=== PATIENT | female | born 1990 | race American Indian/Alaskan Native ===

== ENCOUNTER 2022-03-15 14:54 | Inpatient (IN) | payer OTHER ==
[2022-03-15] MEDS ORDERED: LACTATED RINGERS 500 ML IV ONE (15:59)
[2022-03-15 16:21] LABS: Hemoglobin 8.8 gm/dl (10.1-14.3); Mean Corpuscular HGB Conc 34 % (30-34); Mean Corpuscular Volume 77 fl (79-97); Platelet Count 390 K/mm3 (140-440); Red Blood Count 3.37 M/mm3 (3.65-5.03); Red Cell Distribution Width 15.8 % (13.2-15.2)
[2022-03-15 16:33] LABS: Bacteria,Urine 2+ /HPF (Negative); Mucus,Urine FEW /HPF
[2022-03-15 16:46] LABS: Bilirubin,Urine Negative (Negative); Blood,Urine Trace (Negative); Color,Urine Straw (Yellow); Urobilinogen,Urine < 2.0 mg/dL (<2.0)
[2022-03-15 16:47] LABS: Alanine Aminotransferase 27 units/L (7-56); Uric Acid 2.6 mg/dL (3.5-7.6)
[2022-03-15] MEDS ORDERED: ACETAMINOPHEN 500 MG TAB PO NR (17:42)
--- NOTE | 2022-03-15 18:16 | History and Physical Report ---
History of Present Illness Date of examination: 03/15/22 Chief complaint: MULLEN, dizzy, nausea and vomiting History of present illness: EDC Confirmation: 06/20/2022 Past History : 1 Term Births: 0 Premature Births: 0 Living Children: 0 Para: 0 Mult. Births: 0 Prev : 0 Aborta: 0 Elect. Ab: 0 Spont. Ab: 0 Ectopics: 0 Past Medical History: Reviewed and updated today: Anxiety Asthma Depression Past Surgical History: Reviewed and updated today: Negative Past Surgical History Family History Summary: First Degree Blood Relative - Has No Known Family History - Entered On: 01/02/2022 Social History: Patient is single Smoking History: Patient has never smoked. Risk Factors: Smoked Tobacco Use: Never smoker Smokeless Tobacco Use: Never Counseled to Quit/Cut Down: yes Passive Smoke Exposure: no HIV High Risk Behavior: no Caffeine Use: 0 drinks per day Exercise: yes Times/wk: 3 Type of Exercise: run Exercise Counseling: yes Seatbelt Use: preg-[facility] % Sun Exposure: frequently Family History Risk Factors: Family History of CA in 1 Female Relative Age < 65: no Family History of CA in 1 Male Relative Age < 55: no No Dietary Counseling Reason: pn yes PAP Smear History: Date of Last PAP Smear: 12/30/2020 Results: Normal Alcohol Use: no Drug Use: no Past Medical History Anesthesia Complications: negative Anemia: negative Autoimmune Disorder: negative Bleeding Disorder: negative Blood Transfusions: negative Breast Disease: negative Diabetes: negative Heart Disease: negative Hypertension: negative Hepatitis/Liver Disease: negative Kidney Disease/UTI: negative Neurologic/Epilepsy/Migraines: negative Phlebitis/Varicosities: negative Psychiatric: positive Pulmonary Disease/Asthma: positive Thyroid Disease: negative Hospitalizations: negative 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 Infection History Hx of STD: none HIV Risk Eval: no Hepatitis B Risk Eval: low risk Personal hx. of genital herpes: no Partner hx. of genital herpes: no Rash, Viral, or Febrile illness since last LMP? no Varicella/Chicken Pox Status: Previous Disease TB Risk: no Genetic History Congenital Heart Defect: Mom: no Dad: no Joann Disease: Mom: no Dad: no Thalassemia Mom: no Dad: no Neural Tube Defect Mom: no Dad: no Down's Syndrome Mom: no Dad: no Jermaine-Sachs Mom: no Dad: no Sickle Cell Disease/Trait Mom: no Dad: no Hemophilia Mom: no Dad: no Muscular Dystrophy Mom: no Dad: no Cystic Fibrosis Mom: no Dad: no Bozena Chorea Mom: no Dad: no Mental Retardation Mom: no Dad: no Fragile X Mom: no Dad: no Other Genetic/Chromosomal Disorder Mom: no Dad: no Child w/other defect Mom: no Dad: no Enviromental Exposures Enviromental Exposures Reviewed Xray Exposure: no Medication, drug, or alcohol use since LMP: no Chemical/Other Exposure: no Exposure to Cat Liter: no Hx of Parvovirus (Fifth Disease): no Occupational Exposure to Children: none Active Medications (reviewed today): albuterol inhaler () Gummies(zinc chelate) unspecified unspecified ([id number] [id number]) Current Allergies (reviewed today): No known allergies Past History Past Medical History: other (see HPI) Past Surgical History: other (see HPI) PUBLIC ACCOUNTANT History: other (see HPI) Family/Genetic History: other (see HPI) Social history: no significant social history - Obstetrical History Expected Date of Delivery: 06/20/22 Actual Gestation: 26 Week(s) 1 Day(s) : 1 Para: 0 Hx # Term Pregnancies: 0 Number of Pregnancies: 0 Spontaneous Abortions: 0 Induced : 0 Number of Living Children: 0 Medications and Allergies Allergies Allergy/AdvReac Type Severity Reaction Status Date / Time No Known Allergies Allergy Verified 03/15/22 15:51 Home Medications Medication Instructions Recorded Confirmed Last Taken Type Cyclobenzaprine [Flexeril] 10 mg PO TID PRN #15 tablet 06/12/16 03/15/22 Unknown Rx Ibuprofen [Motrin 800 MG tab] 800 mg PO Q8HR PRN #30 tablet 06/12/16 03/15/22 Unknown Rx Active Meds: Active Medications Acetaminophen (Acetaminophen 500 Mg Tab) 1,000 mg PO ONCE NR Stop: 03/15/22 20:00 Last Admin: 03/15/22 17:48 Dose: 1,000 mg Acetaminophen (Acetaminophen 325 Mg Tab) 650 mg PO Q4H PRN PRN Reason: Pain MILD(1-3)/Fever >100.5/MULLEN Al Hydrox/Mg Hydrox/Simethicone (Alum-Mag Hydroxide-Simethicone [id number]/5ml Oral Liqd 30 Ml) 30 ml PO Q6H PRN PRN Reason: Indigestion Diphenhydramine HCl (Diphenhydramine 25 Mg Cap) 25 mg PO Q6H PRN PRN Reason: Itching Docusate Sodium (Docusate Sodium 100 Mg Cap) 100 mg PO Q12H PRN PRN Reason: Constipation Lactated Ringer's (Lactated Ringers) 1,000 mls @ 125 mls/hr IV DIRECT KENNETH Magnesium Hydroxide (Magnesium Hydroxide (Mom) Oral Liqd Udc) 30 ml PO QHS PRN PRN Reason: Laxative Effect Multivitamins/Iron/Calcium ( [id number] Fumarate-Folic Acid Vit Tab) 1 each PO QDAY KENNETH Ondansetron HCl (Ondansetron 4 Mg/2 Ml Inj) 4 mg IV Q6H PRN PRN Reason: Nausea And Vomiting Sodium Chloride (Sodium Chloride Nasal [place] 44ml) 2 spray NS Q4H PRN PRN Reason: Congestion Review of Systems All systems: negative - Vital Signs Vital signs: Vital Signs Pulse BP Pulse Ox 101 H 142/80 98 03/15/22 15:54 03/15/22 15:54 03/15/22 15:54 Temp Pulse Resp BP Pulse Ox 97.9 F 88 16 138/73 98 03/15/22 15:55 03/15/22 18:04 03/15/22 17:48 03/15/22 18:04 03/15/22 18:04 - Physical Exam Breasts: Positive: normal Cardiovascular: Regular rate Lungs: Positive: Normal air movement Abdomen: Positive: normal appearance, soft Genitourinary (Female): Positive: normal external genitalia Extremities: Positive: normal Deep Tendon Reflex Grade: Normal +2 - Obstetrical FHR: category 1 Uterine Contraction Monitor Mode: External Uterine Contraction Pattern: Absent Uterine Tone Measurement Phase: Resting Results Result Diagrams: 03/15/22 16:11 03/15/22 16:11 Abnormal lab results 03/15/22 03/15/22 03/15/22 Range/Units 16:11 16:11 16:11 RBC 3.37 L (3.65-5.03) M/mm3 Hgb 8.8 L (10.1-14.3) gm/dl Hct 26.0 L (30.3-42.9) % MCV 77 L (79-97) fl MCH 26 L (28-32) pg RDW 15.8 H (13.2-15.2) % Creatinine 0.5 L (0.6-1.2) mg/dL Uric Acid 2.6 L (3.5-7.6) mg/dL Lactate Dehydrogenase 181 H (91-180) units/L Urine WBC (Auto) 18.0 H (0.0-6.0) /HPF U Epithel Cells (Auto) 15.0 H (0-13.0) /HPF All other labs normal. Assessment and Plan 31y/o @ 26+1weeks admitted for observation and 24hr urine. She presented with MULLEN, dizziness, N/V. Upon admission, b/p 142/80. no hx of htn. pre-e labs collected and reviewed. 1+ proteinuria noted. Dr. Khan consulted - plan to keep for 24h urine collection and continued observation. Covid test also ordered, results not expected until tomorrow. no fever noted. 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
[2022-03-15] MEDS ORDERED: SODIUM CHLORIDE NASAL SPRAY 44ML NS PRN (19:00)
[2022-03-15] MEDS ORDERED: diphenhydrAMINE 25 MG CAP PO PRN (19:00)
[2022-03-15] MEDS ORDERED: ALUM-MAG HYDROXIDE-SIMETHICONE 200-200-20MG/5ML ORAL LIQD 30 ML PO PRN (19:00)
[2022-03-15] MEDS ORDERED: ONDANSETRON 4 MG/2 ML INJ IV PRN (19:00)
[2022-03-15] MEDS ORDERED: DOCUSATE SODIUM 100 MG CAP PO PRN (19:00)
[2022-03-15] MEDS: LACTATED RINGERS 1,000 ML IV SCH (20:56)
[2022-03-15] MEDS ORDERED: ACETAMINOPHEN 325 MG TAB PO PRN (21:30)
[2022-03-15] MEDS ORDERED: MAGNESIUM HYDROXIDE (MOM) ORAL LIQD UDC PO PRN (22:00)
--- NOTE | 2022-03-16 07:41 | Progress Note ---
Assessment and Plan A: IUP @ 26,2 wks, elevated BP X1, MULLEN, 24 hr urine in progress, anemia - Patient Problems (1) 26 weeks gestation of Current Visit: Yes Status: Acute Plan to address problem: Continue with NST's 4 hrs. Monitor for s/sx of labor. (2) Anemia complicating Current Visit: Yes Status: Acute Qualifiers: Trimester: second trimester Qualified Code(s): O99.012 - Anemia complicating , second trimester Plan to address problem: Iron supplementation ordered. (3) Elevated blood pressure complicating in second trimester, antepartum Current Visit: Yes Status: Acute Plan to address problem: Continue to monitor blood pressures. Monitor for s/sx of Pre-eclampsia. 24 hr urine in progress. - Due to be completed at 1930 on 03/16. Subjective - Subjective Date of service: 03/16/22 Principal diagnosis: IUP @ 26,2 wks, elevated BP X1, MULLEN, 24 hr urine in progress Interval history: Pt denies MULLEN, blurred vision, spots before her eyes, chest pain, feeling dizzy, lightheaded, shortness of breath, upper abdominal pain, vaginal bleeding, ctxs, and LOF. We discussed need for iron supplementation and pt verbalized understanding. Patient reports: movement normal, no new complaints, no loss of fluid, no vaginal bleeding, no contractions Objective - Vital Signs Vital Signs: Vital Signs - 12hr 03/15/22 03/15/22 03/15/22 19:44 19:48 19:54 Temperature Pulse Rate 91 H 95 H 93 H Respiratory Rate Blood Pressure O2 Sat by Pulse 100 99 99 Oximetry 03/15/22 03/15/22 03/15/22 19:59 20:04 20:09 Temperature Pulse Rate 91 H 90 86 Respiratory Rate Blood Pressure O2 Sat by Pulse 99 98 99 Oximetry 03/15/22 03/15/22 03/15/22 20:14 20:19 20:24 Temperature Pulse Rate 89 89 93 H Respiratory Rate Blood Pressure O2 Sat by Pulse 99 99 100 Oximetry 03/15/22 03/15/22 03/15/22 20:29 20:34 20:39 Temperature Pulse Rate 87 81 98 H Respiratory Rate Blood Pressure 129/67 O2 Sat by Pulse 98 99 99 Oximetry 03/15/22 03/15/22 03/15/22 20:43 20:48 20:54 Temperature Pulse Rate 90 87 83 Respiratory Rate Blood Pressure O2 Sat by Pulse 99 98 99 Oximetry 03/15/22 03/15/22 03/15/22 20:59 21:04 21:09 Temperature Pulse Rate 96 H 85 89 Respiratory Rate Blood Pressure O2 Sat by Pulse 99 99 99 Oximetry 03/15/22 03/15/22 03/15/22 21:13 21:19 21:24 Temperature Pulse Rate 92 H 85 86 Respiratory Rate Blood Pressure O2 Sat by Pulse 98 98 100 Oximetry 03/15/22 03/15/22 03/15/22 21:29 21:34 21:38 Temperature Pulse Rate 98 H 91 H 96 H Respiratory Rate Blood Pressure O2 Sat by Pulse 99 99 98 Oximetry 03/15/22 03/15/22 03/15/22 21:44 21:48 21:53 Temperature Pulse Rate 99 H 94 H 94 H Respiratory Rate Blood Pressure O2 Sat by Pulse 95 99 100 Oximetry 03/15/22 03/15/22 03/15/22 21:59 22:03 22:09 Temperature Pulse Rate 96 H 96 H 89 Respiratory Rate Blood Pressure O2 Sat by Pulse 99 98 97 Oximetry 03/15/22 03/15/22 03/15/22 22:13 22:19 22:24 Temperature Pulse Rate 92 H 98 H 104 H Respiratory Rate Blood Pressure O2 Sat by Pulse 97 98 99 Oximetry 03/15/22 03/15/22 03/15/22 22:29 22:34 22:35 Temperature Pulse Rate 99 H 90 90 Respiratory Rate Blood Pressure 137/73 O2 Sat by Pulse 98 99 94 Oximetry 03/15/22 03/15/22 03/15/22 22:38 22:43 22:49 Temperature Pulse Rate 96 H 99 H 88 Respiratory Rate Blood Pressure O2 Sat by Pulse 99 99 99 Oximetry 03/15/22 03/15/22 03/15/22 23:09 23:12 23:14 Temperature 98 F Pulse Rate 98 H 90 Respiratory 18 Rate Blood Pressure O2 Sat by Pulse 99 98 99 Oximetry 03/15/22 03/15/22 03/15/22 23:19 23:24 23:28 Temperature Pulse Rate 94 H 95 H 90 Respiratory Rate Blood Pressure O2 Sat by Pulse 98 98 98 Oximetry 03/15/22 03/15/22 03/15/22 23:33 23:35 23:39 Temperature Pulse Rate 106 H 93 H 92 H Respiratory Rate Blood Pressure 111/64 O2 Sat by Pulse 99 99 Oximetry 03/15/22 03/15/22 03/15/22 23:44 23:48 23:53 Temperature Pulse Rate 86 90 84 Respiratory Rate Blood Pressure O2 Sat by Pulse 99 98 99 Oximetry 03/15/22 03/16/22 03/16/22 23:58 00:04 00:08 Temperature Pulse Rate 101 H 87 91 H Respiratory Rate Blood Pressure O2 Sat by Pulse 99 99 98 Oximetry 03/16/22 03/16/22 03/16/22 00:14 00:18 00:24 Temperature Pulse Rate 89 84 85 Respiratory Rate Blood Pressure O2 Sat by Pulse 98 99 98 Oximetry 03/16/22 03/16/22 03/16/22 00:29 00:33 00:35 Temperature Pulse Rate 82 80 90 Respiratory Rate Blood Pressure 109/51 O2 Sat by Pulse 98 100 Oximetry 03/16/22 03/16/22 03/16/22 00:38 00:43 00:44 Temperature Pulse Rate 90 85 40 L Respiratory Rate Blood Pressure O2 Sat by Pulse 99 100 92 Oximetry 03/16/22 03/16/22 03/16/22 00:48 00:53 00:58 Temperature Pulse Rate 90 91 H 96 H Respiratory Rate Blood Pressure O2 Sat by Pulse 99 100 99 Oximetry 03/16/22 03/16/22 03/16/22 01:03 01:08 01:13 Temperature Pulse Rate 90 81 89 Respiratory Rate Blood Pressure O2 Sat by Pulse 98 98 97 Oximetry 03/16/22 03/16/22 03/16/22 01:18 01:23 01:28 Temperature Pulse Rate 87 90 89 Respiratory Rate Blood Pressure O2 Sat by Pulse 96 97 98 Oximetry 03/16/22 03/16/22 03/16/22 01:33 01:34 01:38 Temperature Pulse Rate 93 H 91 H 92 H Respiratory Rate Blood Pressure 103/50 O2 Sat by Pulse 98 96 Oximetry 03/16/22 03/16/22 03/16/22 01:43 01:48 01:53 Temperature Pulse Rate 93 H 95 H 92 H Respiratory Rate Blood Pressure O2 Sat by Pulse 98 98 98 Oximetry 03/16/22 03/16/22 03/16/22 01:55 01:58 02:03 Temperature Pulse Rate 104 H 79 80 Respiratory Rate Blood Pressure O2 Sat by Pulse 94 96 98 Oximetry 03/16/22 03/16/22 03/16/22 02:08 02:12 02:13 Temperature Pulse Rate 80 89 89 Respiratory Rate Blood Pressure O2 Sat by Pulse 99 93 97 Oximetry 03/16/22 03/16/22 03/16/22 02:18 02:23 02:28 Temperature Pulse Rate 88 87 82 Respiratory Rate Blood Pressure O2 Sat by Pulse 97 99 99 Oximetry 03/16/22 03/16/22 03/16/22 02:33 02:34 02:35 Temperature Pulse Rate 85 68 81 Respiratory Rate Blood Pressure 115/54 O2 Sat by Pulse 98 91 Oximetry 03/16/22 03/16/22 03/16/22 02:38 02:43 02:48 Temperature Pulse Rate 85 87 87 Respiratory Rate Blood Pressure O2 Sat by Pulse 97 99 99 Oximetry 03/16/22 03/16/22 03/16/22 02:53 02:58 03:03 Temperature Pulse Rate 89 90 90 Respiratory Rate Blood Pressure O2 Sat by Pulse 98 97 98 Oximetry 03/16/22 03/16/22 03/16/22 03:08 03:13 03:18 Temperature Pulse Rate 84 89 89 Respiratory Rate Blood Pressure O2 Sat by Pulse 97 99 99 Oximetry 03/16/22 03/16/22 03/16/22 03:23 03:28 03:33 Temperature Pulse Rate 78 109 H 74 Respiratory Rate Blood Pressure O2 Sat by Pulse 98 98 97 Oximetry 03/16/22 03/16/22 03/16/22 03:35 03:38 03:43 Temperature Pulse Rate 90 79 78 Respiratory Rate Blood Pressure 111/56 O2 Sat by Pulse 99 99 Oximetry 03/16/22 03/16/22 03/16/22 03:48 03:53 03:54 Temperature Pulse Rate 82 88 83 Respiratory Rate Blood Pressure O2 Sat by Pulse 98 98 93 Oximetry 03/16/22 03/16/22 03/16/22 03:58 04:06 04:11 Temperature Pulse Rate 101 H 102 H 85 Respiratory Rate Blood Pressure O2 Sat by Pulse 95 97 99 Oximetry 03/16/22 03/16/22 03/16/22 04:16 04:21 04:26 Temperature Pulse Rate 83 80 76 Respiratory Rate Blood Pressure O2 Sat by Pulse 99 99 99 Oximetry 03/16/22 03/16/22 03/16/22 04:31 04:34 04:36 Temperature Pulse Rate 77 81 86 Respiratory Rate Blood Pressure 130/73 O2 Sat by Pulse 99 100 Oximetry 03/16/22 03/16/22 03/16/22 04:41 04:46 04:51 Temperature 98.3 F Pulse Rate 80 80 79 Respiratory 18 Rate Blood Pressure O2 Sat by Pulse 97 98 98 Oximetry 03/16/22 03/16/22 03/16/22 04:56 05:01 05:06 Temperature Pulse Rate 83 81 84 Respiratory Rate Blood Pressure O2 Sat by Pulse 97 98 99 Oximetry 03/16/22 03/16/22 03/16/22 05:11 05:16 05:21 Temperature Pulse Rate 85 85 86 Respiratory Rate Blood Pressure O2 Sat by Pulse 99 98 98 Oximetry 03/16/22 03/16/22 03/16/22 05:26 05:31 05:34 Temperature Pulse Rate 91 H 89 81 Respiratory Rate Blood Pressure 122/58 O2 Sat by Pulse 98 98 Oximetry 03/16/22 03/16/22 03/16/22 05:36 05:41 05:46 Temperature Pulse Rate 79 82 85 Respiratory Rate Blood Pressure O2 Sat by Pulse 98 97 96 Oximetry 03/16/22 03/16/22 03/16/22 05:48 05:51 05:56 Temperature Pulse Rate 87 82 86 Respiratory Rate Blood Pressure O2 Sat by Pulse 93 98 99 Oximetry 03/16/22 03/16/22 03/16/22 06:02 06:07 06:12 Temperature Pulse Rate 88 85 80 Respiratory Rate Blood Pressure O2 Sat by Pulse 99 98 98 Oximetry 03/16/22 03/16/22 03/16/22 06:17 06:22 06:27 Temperature Pulse Rate 86 84 89 Respiratory Rate Blood Pressure O2 Sat by Pulse 98 99 98 Oximetry 03/16/22 03/16/22 03/16/22 06:32 06:34 06:37 Temperature Pulse Rate 87 83 86 Respiratory Rate Blood Pressure 111/63 O2 Sat by Pulse 99 98 Oximetry 03/16/22 03/16/22 03/16/22 06:42 06:47 06:52 Temperature Pulse Rate 89 89 81 Respiratory Rate Blood Pressure O2 Sat by Pulse 98 96 97 Oximetry 03/16/22 03/16/22 03/16/22 06:57 07:02 07:07 Temperature Pulse Rate 93 H 89 85 Respiratory Rate Blood Pressure O2 Sat by Pulse 97 98 99 Oximetry 03/16/22 03/16/22 03/16/22 07:12 07:17 07:22 Temperature Pulse Rate 88 89 89 Respiratory Rate Blood Pressure O2 Sat by Pulse 98 98 99 Oximetry 03/16/22 03/16/22 03/16/22 07:27 07:32 07:35 Temperature Pulse Rate 89 79 93 H Respiratory Rate Blood Pressure 100/62 O2 Sat by Pulse 98 98 Oximetry 03/16/22 07:37 Temperature Pulse Rate 85 Respiratory Rate Blood Pressure O2 Sat by Pulse 97 Oximetry - Exam Cardiovascular: Regular rate Lungs: Normal air movement Abdomen: Present: normal appearance, soft FHR: other (NSTs appropriate for gestational age. ) Uterine Contraction Pattern: Absent Extremities: normal Deep Tendon Reflex Grade: Normal +2 - Labs Labs: Abnormal Labs 03/15/22 03/15/22 03/15/22 16:11 16:11 16:11 RBC 3.37 L Hgb 8.8 L Hct 26.0 L MCV 77 L MCH 26 L RDW 15.8 H Creatinine 0.5 L Uric Acid 2.6 L Lactate Dehydrogenase 181 H Urine WBC (Auto) 18.0 H U Epithel Cells (Auto) 15.0 H Laboratory Results - last 24 hr 03/15/22 03/15/22 03/15/22 16:11 16:11 16:11 WBC 9.2 RBC 3.37 L Hgb 8.8 L Hct 26.0 L MCV 77 L MCH 26 L MCHC 34 RDW 15.8 H Plt Count 390 Creatinine 0.5 L Estimated GFR > 60 Uric Acid 2.6 L AST 18 ALT 27 Lactate Dehydrogenase 181 H Urine Color Straw Urine Turbidity Y Urine pH 6.0 Ur Specific [place] 1.015 Urine Protein 30 mg/dl Urine Glucose (UA) Negative Urine Ketones Negative Urine Blood Trace Urine Nitrite Negative Ur Reducing Substances Not Reportable Urine Bilirubin Negative Urine Ictotest Not Reportable Urine Urobilinogen < 2.0 Ur Leukocyte Esterase Small Urine WBC (Auto) 18.0 H Urine RBC (Auto) 8.0 U Epithel Cells (Auto) 15.0 H Urine Bacteria (Auto) 2+ Urine Mucus Few Urine Yeast (Budding) 1+
[2022-03-16] MEDS: PRENATAL VIT27-FE FUMARATE-FOLIC ACID VIT TAB PO SCH (10:38)
[2022-03-16] MEDS: DOCUSATE SODIUM 100 MG CAP PO SCH ×2 (10:38→21:34)
[2022-03-16] MEDS: FERROUS SULFATE 325 MG TAB PO SCH (21:34)
[2022-03-16] MEDS: LACTATED RINGERS 1,000 ML IV SCH (22:06)
--- NOTE | 2022-03-17 08:18 | Progress Note ---
Assessment and Plan patient resting, no complaints. MULLEN, dizziness and n/v resolved. Waiting on results from 24hr urine, plan to d/c patient home with 1 wk follow up. 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 Current Visit: Yes Status: Acute (2) 26 weeks gestation of Current Visit: Yes Status: Acute (3) Headache Current Visit: Yes Status: Resolved Qualifiers: Headache type: tension-type Headache chronicity pattern: acute headache Intractability: not intractable Qualified Code(s): G44.209 - Tension-type headache, unspecified, not intractable (4) Elevated blood pressure complicating in second trimester, antepartum Current Visit: Yes Status: Acute (5) Nausea & vomiting Current Visit: Yes Status: Resolved (6) Anxiety Current Visit: Yes Status: Acute (7) Asthma Current Visit: Yes Status: Acute Subjective - Subjective Date of service: 03/17/22 Principal diagnosis: IUP @ 26+3 wks, elevated BP X1, MULLEN, 24 hr urine in progress Interval history: EDC Confirmation: 06/20/2022 Past History : 1 Term Births: 0 Premature Births: 0 Living Children: 0 Para: 0 Mult. Births: 0 Prev : 0 Aborta: 0 Elect. Ab: 0 Spont. Ab: 0 Ectopics: 0 Past Medical History: Reviewed and updated today: Anxiety Asthma Depression Past Surgical History: Reviewed and updated today: Negative Past Surgical History Family History Summary: First Degree Blood Relative - Has No Known Family History - Entered On: 01/02/2022 Social History: Patient is single Smoking History: Patient has never smoked. 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 % Sun Exposure: frequently Family History Risk Factors: Family History of DC in 1 Female Relative Age < 65: no Family History of DC in 1 Male Relative Age < 55: no No Dietary Counseling Reason: pn yes PAP Smear History: Date of Last PAP Smear: 12/30/2020 Results: Normal Alcohol Use: no Drug Use: no Past Medical History Anesthesia Complications: negative Anemia: negative Autoimmune Disorder: negative Bleeding Disorder: negative Blood Transfusions: negative Breast Disease: negative Diabetes: negative Heart Disease: negative Hypertension: negative Hepatitis/Liver Disease: negative Kidney Disease/UTI: negative Neurologic/Epilepsy/Migraines: negative Phlebitis/Varicosities: negative Psychiatric: positive Pulmonary Disease/Asthma: positive Thyroid Disease: negative Hospitalizations: negative Surgery (Non-contract processor): Negative Past Surgical History Abnormal PAP: negative, normal pap 12/30/20 per pt LINDA Exposure: negative Infertility: negative Uterine Anomaly: negative Uterine Surgery (not C/S): negative Other Gynecologic Problems: negative Social Hx: Patient is single Smoking History: Patient has never smoked. Infection History Hx of STD: none HIV Risk Eval: no Hepatitis B Risk Eval: low risk Personal hx. of genital herpes: no Partner hx. of genital herpes: no Rash, Viral, or Febrile illness since last LMP? no Varicella/Chicken Pox Status: Previous Disease TB Risk: no Genetic History Congenital Heart Defect: Mom: no Dad: no Joann Disease: Mom: no Dad: no Thalassemia Mom: no Dad: no Neural Tube Defect Mom: no Dad: no Down's Syndrome Mom: no Dad: no Jermaine-Sachs Mom: no Dad: no Sickle Cell Disease/Trait Mom: no Dad: no Hemophilia Mom: no Dad: no Muscular Dystrophy Mom: no Dad: no Cystic Fibrosis Mom: no Dad: no [place] Chorea Mom: no Dad: no Mental Retardation Mom: no Dad: no Fragile X Mom: no Dad: no Other Genetic/Chromosomal Disorder Mom: no Dad: no Child w/other defect Mom: no Dad: no Enviromental Exposures Enviromental Exposures Reviewed Xray Exposure: no Medication, drug, or alcohol use since LMP: no Chemical/Other Exposure: no Exposure to Cat Liter: no Hx of Parvovirus (Fifth Disease): no Occupational Exposure to Children: none Active Medications (reviewed today): albuterol inhaler () Gummies(zinc chelate) unspecified unspecified ([id number] [id number]) Current Allergies (reviewed today): No known allergies Patient reports: movement normal, no new complaints, no loss of fluid, no vaginal bleeding, no contractions Objective - Vital Signs Vital Signs: Vital Signs - 12hr 03/16/22 03/16/22 03/16/22 20:21 20:23 20:28 Temperature Pulse Rate 91 H 90 102 H Respiratory Rate Blood Pressure O2 Sat by Pulse 90 99 100 Oximetry 03/16/22 03/16/22 03/16/22 20:29 20:33 20:35 Temperature Pulse Rate 99 H 100 H 92 H Respiratory Rate Blood Pressure O2 Sat by Pulse 92 98 93 Oximetry 03/16/22 03/16/22 03/16/22 20:36 20:38 20:43 Temperature Pulse Rate 98 H 108 H 98 H Respiratory Rate Blood Pressure 99/49 O2 Sat by Pulse 97 99 Oximetry 03/16/22 03/16/22 03/16/22 20:48 20:53 20:58 Temperature Pulse Rate 88 90 88 Respiratory Rate Blood Pressure O2 Sat by Pulse 99 99 98 Oximetry 03/16/22 03/16/22 03/16/22 21:03 21:08 21:13 Temperature Pulse Rate 92 H 88 92 H Respiratory Rate Blood Pressure O2 Sat by Pulse 99 99 98 Oximetry 03/16/22 03/16/22 03/16/22 21:18 21:23 21:28 Temperature Pulse Rate 87 105 H 91 H Respiratory Rate Blood Pressure O2 Sat by Pulse 100 99 97 Oximetry 03/16/22 03/16/22 03/16/22 21:33 21:34 21:38 Temperature Pulse Rate 92 H 90 100 H Respiratory Rate Blood Pressure 119/65 O2 Sat by Pulse 98 99 Oximetry 03/16/22 03/16/22 03/16/22 21:43 21:48 21:53 Temperature Pulse Rate 96 H 93 H 91 H Respiratory Rate Blood Pressure O2 Sat by Pulse 98 98 97 Oximetry 03/16/22 03/16/22 03/16/22 21:58 22:03 22:08 Temperature Pulse Rate 90 92 H 85 Respiratory Rate Blood Pressure O2 Sat by Pulse 99 99 99 Oximetry 03/16/22 03/16/22 03/16/22 22:13 22:18 22:23 Temperature Pulse Rate 98 H 108 H 90 Respiratory Rate Blood Pressure O2 Sat by Pulse 98 98 100 Oximetry 03/16/22 03/16/22 03/16/22 22:28 22:33 22:35 Temperature Pulse Rate 95 H 86 84 Respiratory Rate Blood Pressure 127/68 O2 Sat by Pulse 100 99 Oximetry 03/16/22 03/16/22 03/16/22 22:38 22:43 22:48 Temperature Pulse Rate 83 104 H 91 H Respiratory Rate Blood Pressure O2 Sat by Pulse 100 98 100 Oximetry 03/16/22 03/16/22 03/16/22 22:53 22:58 23:03 Temperature Pulse Rate 93 H 108 H 96 H Respiratory Rate Blood Pressure O2 Sat by Pulse 98 100 98 Oximetry 03/16/22 03/16/22 03/16/22 23:08 23:13 23:18 Temperature Pulse Rate 98 H 92 H 104 H Respiratory Rate Blood Pressure O2 Sat by Pulse 99 100 100 Oximetry 03/16/22 03/16/22 03/16/22 23:23 23:28 23:33 Temperature 98.5 F Pulse Rate 102 H 89 87 Respiratory 18 Rate Blood Pressure O2 Sat by Pulse 99 98 98 Oximetry 03/16/22 03/16/22 03/16/22 23:34 23:41 23:46 Temperature Pulse Rate 83 73 93 H Respiratory Rate Blood Pressure 119/74 O2 Sat by Pulse 92 99 Oximetry 03/16/22 03/16/22 03/17/22 23:51 23:56 00:01 Temperature Pulse Rate 100 H 93 H 87 Respiratory Rate Blood Pressure O2 Sat by Pulse 98 99 99 Oximetry 03/17/22 03/17/22 03/17/22 00:06 00:11 00:16 Temperature Pulse Rate 91 H 90 90 Respiratory Rate Blood Pressure O2 Sat by Pulse 99 99 99 Oximetry 03/17/22 03/17/22 03/17/22 00:21 00:26 00:31 Temperature Pulse Rate 90 94 H 98 H Respiratory Rate Blood Pressure O2 Sat by Pulse 99 99 99 Oximetry 03/17/22 03/17/22 03/17/22 00:35 00:36 00:41 Temperature Pulse Rate 90 92 H 85 Respiratory Rate Blood Pressure 166/83 O2 Sat by Pulse 98 100 Oximetry 03/17/22 03/17/22 03/17/22 00:46 00:51 00:56 Temperature Pulse Rate 87 98 H 85 Respiratory Rate Blood Pressure O2 Sat by Pulse 98 99 98 Oximetry 03/17/22 03/17/22 03/17/22 01:01 01:06 01:11 Temperature Pulse Rate 85 85 87 Respiratory Rate Blood Pressure O2 Sat by Pulse 97 98 98 Oximetry 03/17/22 03/17/22 03/17/22 01:16 01:21 01:26 Temperature Pulse Rate 88 86 85 Respiratory Rate Blood Pressure O2 Sat by Pulse 97 98 97 Oximetry 03/17/22 03/17/22 03/17/22 01:31 01:35 01:36 Temperature Pulse Rate 86 97 H 76 Respiratory Rate Blood Pressure 127/65 O2 Sat by Pulse 98 96 Oximetry 03/17/22 03/17/22 03/17/22 01:41 01:45 01:46 Temperature Pulse Rate 78 89 83 Respiratory Rate Blood Pressure O2 Sat by Pulse 98 94 97 Oximetry 03/17/22 03/17/22 03/17/22 01:51 01:52 01:56 Temperature Pulse Rate 89 91 H 92 H Respiratory Rate Blood Pressure O2 Sat by Pulse 95 94 96 Oximetry 03/17/22 03/17/22 03/17/22 02:00 02:01 02:06 Temperature Pulse Rate 103 H 99 H 81 Respiratory Rate Blood Pressure O2 Sat by Pulse 93 96 97 Oximetry 03/17/22 03/17/22 03/17/22 02:11 02:16 02:21 Temperature Pulse Rate 77 82 77 Respiratory Rate Blood Pressure O2 Sat by Pulse 98 97 98 Oximetry 03/17/22 03/17/22 03/17/22 02:26 02:31 02:35 Temperature Pulse Rate 79 79 81 Respiratory Rate Blood Pressure 105/70 O2 Sat by Pulse 99 98 Oximetry 03/17/22 03/17/22 03/17/22 02:36 02:41 02:46 Temperature Pulse Rate 77 82 83 Respiratory Rate Blood Pressure O2 Sat by Pulse 97 98 97 Oximetry 03/17/22 03/17/22 03/17/22 02:51 02:56 03:01 Temperature Pulse Rate 86 89 90 Respiratory Rate Blood Pressure O2 Sat by Pulse 98 98 98 Oximetry 03/17/22 03/17/22 03/17/22 03:06 03:11 03:16 Temperature Pulse Rate 94 H 96 H 97 H Respiratory Rate Blood Pressure O2 Sat by Pulse 98 98 97 Oximetry 03/17/22 03/17/22 03/17/22 03:21 03:26 03:27 Temperature Pulse Rate 92 H 88 88 Respiratory Rate Blood Pressure O2 Sat by Pulse 97 98 92 Oximetry 03/17/22 03/17/22 03/17/22 03:31 03:33 03:35 Temperature Pulse Rate 92 H 100 H 91 H Respiratory Rate Blood Pressure 121/78 O2 Sat by Pulse 96 94 Oximetry 03/17/22 03/17/22 03/17/22 03:36 03:41 03:46 Temperature Pulse Rate 81 91 H 77 Respiratory Rate Blood Pressure O2 Sat by Pulse 98 99 97 Oximetry 03/17/22 03/17/22 03/17/22 03:51 03:56 04:01 Temperature Pulse Rate 81 82 79 Respiratory Rate Blood Pressure O2 Sat by Pulse 98 97 98 Oximetry 03/17/22 03/17/22 03/17/22 04:06 04:11 04:13 Temperature 98.6 F Pulse Rate 80 81 Respiratory 18 Rate Blood Pressure O2 Sat by Pulse 98 99 Oximetry 03/17/22 03/17/22 03/17/22 04:16 04:21 04:25 Temperature Pulse Rate 85 85 95 H Respiratory Rate Blood Pressure O2 Sat by Pulse 98 98 94 Oximetry 03/17/22 03/17/22 03/17/22 04:26 04:31 04:35 Temperature Pulse Rate 94 H 95 H 85 Respiratory Rate Blood Pressure 118/56 O2 Sat by Pulse 95 97 Oximetry 03/17/22 03/17/22 03/17/22 04:36 04:41 04:46 Temperature Pulse Rate 86 89 90 Respiratory Rate Blood Pressure O2 Sat by Pulse 98 98 98 Oximetry 03/17/22 03/17/22 03/17/22 04:51 04:56 05:01 Temperature Pulse Rate 81 79 82 Respiratory Rate Blood Pressure O2 Sat by Pulse 98 98 97 Oximetry 03/17/22 03/17/22 03/17/22 05:06 05:11 05:16 Temperature Pulse Rate 86 84 85 Respiratory Rate Blood Pressure O2 Sat by Pulse 97 98 98 Oximetry 03/17/22 03/17/22 03/17/22 05:21 05:26 05:31 Temperature Pulse Rate 80 83 87 Respiratory Rate Blood Pressure O2 Sat by Pulse 98 98 98 Oximetry 03/17/22 03/17/22 03/17/22 05:35 05:36 05:41 Temperature Pulse Rate 96 H 77 81 Respiratory Rate Blood Pressure 115/73 O2 Sat by Pulse 99 98 Oximetry 03/17/22 03/17/22 03/17/22 05:46 05:51 05:56 Temperature Pulse Rate 84 85 87 Respiratory Rate Blood Pressure O2 Sat by Pulse 99 98 98 Oximetry 03/17/22 03/17/22 03/17/22 06:01 06:06 06:08 Temperature Pulse Rate 86 92 H 99 H Respiratory Rate Blood Pressure O2 Sat by Pulse 98 99 93 Oximetry 03/17/22 03/17/22 03/17/22 06:11 06:16 06:21 Temperature Pulse Rate 85 79 85 Respiratory Rate Blood Pressure O2 Sat by Pulse 99 98 99 Oximetry 03/17/22 03/17/22 03/17/22 06:26 06:31 06:42 Temperature Pulse Rate 83 80 93 H Respiratory Rate Blood Pressure O2 Sat by Pulse 98 98 100 Oximetry 03/17/22 03/17/22 03/17/22 06:47 06:52 06:57 Temperature Pulse Rate 81 79 86 Respiratory Rate Blood Pressure O2 Sat by Pulse 99 98 99 Oximetry 03/17/22 03/17/22 03/17/22 07:02 07:07 07:12 Temperature Pulse Rate 86 86 85 Respiratory Rate Blood Pressure O2 Sat by Pulse 98 97 97 Oximetry 03/17/22 03/17/22 03/17/22 07:17 07:22 07:27 Temperature Pulse Rate 84 79 78 Respiratory Rate Blood Pressure O2 Sat by Pulse 98 98 98 Oximetry 03/17/22 03/17/22 03/17/22 07:32 07:36 07:37 Temperature Pulse Rate 106 H 89 82 Respiratory Rate Blood Pressure 126/73 O2 Sat by Pulse 99 99 Oximetry 03/17/22 03/17/22 03/17/22 07:42 07:47 07:52 Temperature Pulse Rate 90 80 82 Respiratory Rate Blood Pressure O2 Sat by Pulse 99 99 98 Oximetry 03/17/22 03/17/22 03/17/22 07:57 08:02 08:07 Temperature Pulse Rate 75 81 76 Respiratory Rate Blood Pressure O2 Sat by Pulse 99 98 97 Oximetry 03/17/22 08:12 Temperature Pulse Rate 76 Respiratory Rate Blood Pressure O2 Sat by Pulse 99 Oximetry - Exam Breasts: normal Cardiovascular: Regular rate Lungs: Clear to auscultation, Normal air movement Abdomen: Present: normal appearance, normal bowel sounds Vulva: both: normal Uterus: Present: normal FHR: auscultation normal Uterine Contraction Pattern: Absent Extremities: normal Deep Tendon Reflex Grade: Normal +2 - Labs Labs: Abnormal Labs 03/15/22 03/15/22 03/15/22 16:11 16:11 16:11 RBC 3.37 L Hgb 8.8 L Hct 26.0 L MCV 77 L MCH 26 L RDW 15.8 H Creatinine 0.5 L Uric Acid 2.6 L Lactate Dehydrogenase 181 H Urine WBC (Auto) 18.0 H U Epithel Cells (Auto) 15.0 H Laboratory Results - last 24 hr 03/16/22 10:30 SARS-CoV-2 (PCR) Negative
[2022-03-17 09:18] LABS: Creatinine,Urine 119.4 mg/dL (0.1-20.0); Protein/Creatinine Ratio,Urine 0.14
[2022-03-17 09:35] VITALS: BP 128/59
--- NOTE | 2022-03-17 09:52 | Discharge Summary ---
Providers - Providers Date of Admission: 03/15/22 18:15 Date of discharge: 03/17/22 Attending physician: VISHNU CAMPBELL Primary care physician: VISHNU CAMPBELL Hospitalization Reason for admission: observation (elevated blood pressure, MULLEN and n/v) Discharge diagnosis: other (IUP @ 26 week) Pertinent studies: 24hr urine 221 Condition at discharge: Good Disposition: 01 HOME / SELF CARE / HOMELESS - Discharge Diagnoses (1) GBS carrier Status: Acute (2) 26 weeks gestation of Status: Acute (3) Headache Status: Resolved Qualifiers: Headache type: tension-type Headache chronicity pattern: acute headache Intractability: not intractable Qualified Code(s): G44.209 - Tension-type headache, unspecified, not intractable (4) Elevated blood pressure complicating in second trimester, antepartum Status: Acute (5) Nausea & vomiting Status: Resolved (6) Anxiety Status: Acute (7) Asthma Status: Acute Plan - Provider Discharge Summary Activity: routine Diet: routine Instructions: routine Additional instructions: [] Smoking cessation referral if applicable(refer to patient education folder for contact #) [] Refer to [facility]'s [facility] Booklet Call your doctor immediately for: * Fever > 100.5 * Heavy vaginal bleeding ( >1 pad per hour) * Severe persistent headache * Shortness of breath * Reddened, hot, painful area to leg or breast * Drainage or odor from incision. * Keep incision clean and dry at all times and follow doctor's instructions regarding bathing/showering - Follow up plan Follow up: VISHNU CAMPBELL MD [Primary Care Provider] - 03/24/22 10:15 am
[2022-03-17] MEDS: PRENATAL VIT27-FE FUMARATE-FOLIC ACID VIT TAB PO SCH (10:00)
[2022-03-17] MEDS: FERROUS SULFATE 325 MG TAB PO SCH (10:00)
[2022-03-17] MEDS: DOCUSATE SODIUM 100 MG CAP PO SCH (10:00)
== END 2022-03-17 11:10 | disposition home or self-care (01) | DRG 833 ==
LOC: TRG 14:54 → APU 14:56 → TRG 18:13 → OBSVTOIN 18:15 → APU 18:15 → LD 18:28
PROVIDERS: ADMIT Obstetrics & Gynecology; ATTEND Obstetrics & Gynecology
DX: O16.2 Unspecified maternal hypertension, second trimester (principal); Z20.822 Contact with and (suspected) exposure to COVID-19; Z3A.26 26 weeks gestation of pregnancy; O99.342 Other mental disorders complicating pregnancy, second trimester; F32.9 Major depressive disorder, single episode, unspecified; F41.9 Anxiety disorder, unspecified; O99.820 Streptococcus B carrier state complicating pregnancy; G44.209 Tension-type headache, unspecified, not intractable; O99.012 Anemia complicating pregnancy, second trimester; O99.512 Diseases of the respiratory system complicating pregnancy, second trimester
CPT/HCPCS: 36415; 81001; 82565; 82570; 83615; 84156; 84450; 84460; 84550; 85027; 87086; G0378; J7120; U0003